=== PATIENT | female | born 1990 | race American Indian/Alaskan Native ===

== ENCOUNTER 2018-08-21 21:56 | Emergency (ER) | payer MEDICAID ==
[2018-08-21 22:08] VITALS: O2SAT 100
[2018-08-22 01:00] VITALS: BP 135/94; PULSE 70; RESP 18; TEMP 98
--- NOTE | 2018-08-22 01:17 | C.PDOC ---
History Of Present Illness 28 year old female presents to the ER stating she feels stressed, is going through a lot of things, and feels defeated. Patient is requesting to speak to someone at this time. Denies suicidal ideation, homicidal ideation, or medical complaints at this time. Time Seen by Provider: 08/21/18 22:16 Chief Complaint (Nursing): Medical Clearance History Per: Patient History/Exam Limitations: no limitations Onset/Duration Of Symptoms: Days Current Symptoms Are (Timing): Still Present Recent travel outside of the [place]: No Past Medical History Reviewed: Historical Data, Nursing Documentation, Vital Signs Vital Signs: Last Vital Signs Temp 98 F 08/22/18 00:59 Pulse 70 08/22/18 00:59 Resp 18 08/22/18 00:59 BP 135/94 H 08/22/18 00:59 Pulse Ox 100 08/22/18 00:59 Family History: States: Unknown Family Hx - Social History Hx Alcohol Use: Yes Hx Substance Use: No - Immunization History Hx Tetanus Toxoid Vaccination: No Hx Influenza Vaccination: No Hx Pneumococcal Vaccination: No Review Of Systems Constitutional: Negative for: Fever, Chills Cardiovascular: Negative for: Chest Pain, Palpitations Respiratory: Negative for: Cough, Shortness of Breath Gastrointestinal: Negative for: Nausea, Vomiting Psych: Negative for: Suicidal ideation, Other (Homicidal ideation) Physical Exam - Physical Exam Appears: Non-toxic, Other (Crying, Anxious) Skin: Normal Color, Warm, Dry Head: Atraumatic, Normacephalic Eye(s): bilateral: Normal Inspection Oral Mucosa: Moist Chest: Symmetrical, No Tenderness Cardiovascular: Rhythm Regular Respiratory: Normal Breath Sounds, No Rales, No Rhonchi, No Wheezing Gastrointestinal/Abdominal: Soft, No Tenderness Neurological/Psych: Oriented x3, Normal Speech ED Course And Treatment O2 Sat by Pulse Oximetry: 100 (Room air) Pulse Ox Interpretation: Normal Progress Note: Patient pending crisis evaluation. On arrival to ER, patient was found to be hypertensive, however, BP has much improved on its own while here in the ER. Pt is no longer want to await crisis counselor and desires to leave and will follow up outpatiently. 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 - Scribe Statement The provider has reviewed the documentation as recorded by the Scribmiquel Sawant All medical record entries made by the Leathaibmiquel were at my direction and personally dictated by me. I have reviewed the chart and agree that the record accurately reflects my personal performance of the history, physical exam, medical decision making, and the department course for this patient. I have also personally directed, reviewed, and agree with the discharge instructions and disposition.
== END 2018-08-22 02:16 | disposition home or self-care (01) ==
LOC: C.ER 21:56
DX: F32.9 Major depressive disorder, single episode, unspecified (principal)